=== PATIENT | female | born 1950 | race Caucasian/White ===

== ENCOUNTER 2020-06-06 14:03 | Inpatient (IN) ==
[2020-06-06] MEDS ORDERED: Ipratropium/Albuterol Neb 3 ML IH ONE (14:06)
[2020-06-06] MEDS ORDERED: methylPREDNISolone 125 MG/2 ML VIAL IVP ONE (14:06)
[2020-06-06] MEDS ORDERED: Azithromycin 500 MG in 0.9 % Sodium Chloride 250 ML IVPB ONE (14:06)
[2020-06-06] MEDS ORDERED: cefTRIAXone 2,000 MG in Water for inj. (sterile) 10 ML IVP ONE (14:06)
[2020-06-06 14:36] LABS: Basophils # 0.1 K/mcL (0.0-0.2); Basophils % 0.6 %; Eosinophils # 0.3 K/mcL (0.0-0.6); Eosinophils % 2.8 %; Hematocrit 42.5 % (35.3-44.9); Hemoglobin 14.2 g/dL (11.5-15.4); Immature Granulocytes % 0.2 % (0-4); Lymphocytes # 2.1 K/mcL (0.6-4.6); Lymphocytes % 22.1 %; Mean Corpuscular HGB Conc 33.4 g/dL (31.6-35.5); Mean Corpuscular Hemoglobin 31.4 pg (28.0-33.3); Mean Platelet Volume 9.4 fL (9.4-12.4); Monocytes # 0.6 K/mcL (0.0-1.3); Monocytes % 5.9 %; Neutrophils # 6.6 K/mcL (1.6-8.9); Platelet Count 300 K/mcL (140-400); Red Blood Count 4.52 M/mcL (3.82-4.97); Red Cell Distribution Width 13.8 % (11.5-14.5); Segmented Neutrophils % 68.4 %; White Blood Count 9.6 K/mcL (4.3-11.1)
[2020-06-06 14:53] LABS: Activated Partial Thrombo Time 32.9 Seconds (26.0-36.0); Prothrombin Time 11.8 Seconds (9.4-12.1)
[2020-06-06 14:54] LABS: BUN/Creatinine Ratio 14 (6-26); Blood Urea Nitrogen 12 mg/dL (8-23); Calcium 9.1 mg/dL (8.6-10.3); Carbon Dioxide 27 mEq/L (23-29); Chloride 97 mEq/L (98-107); Glucose 94 mg/dL (70-105); Osmolality,Calculated 278 (280-300); Potassium 4.2 mEq/L (3.5-5.1); Sodium 134 mEq/L (136-145); eGFR For African Americans > 60 (> 60); eGFR For Non-African Americans > 60 (> 60)
[2020-06-06 14:55] LABS: Troponin I < 0.03 ng/mL (< 0.04)
[2020-06-06 17:48] LABS: Adenovirus Not Detected (Not Detect); Bordetella Pertussis Not Detected (Not Detect); Chlamydophila pneumoniae Not Detected (Not Detect); Coronavirus 229E Not Detected (Not Detect); Coronavirus HKU1 Not Detected (Not Detect); Coronavirus NL63 Not Detected (Not Detect); Coronavirus OC43 Not Detected (Not Detect); Human Metapneumovirus Not Detected (Not Detect); Human Rhinovirus/Enterovirus Not Detected (Not Detect); Influenza A Subtype 2009 H1 Not Detected (Not Detect); Influenza B Not Detected (Not Detect); Mycoplasma pneumoniae Not Detected (Not Detect); Parainfluenza Virus 1 Not Detected (Not Detect); Parainfluenza Virus 2 Not Detected (Not Detect); Parainfluenza Virus 3 Not Detected (Not Detect); Parainfluenza Virus 4 Not Detected (Not Detect); Respiratory Syncytial Virus Not Detected (Not Detect)
[2020-06-06] MEDS ORDERED: Naloxone 0.4 MG/ML INJ IVP PRN (18:27)
[2020-06-06] MEDS ORDERED: Ondansetron 4 MG/2 ML VIAL IVP PRN (18:27)
[2020-06-06] MEDS ORDERED: MOM Conc 10 ML UD.LIQ PO PRN (18:27)
[2020-06-06] MEDS ORDERED: Mag Hydrox/Al Hydrox/Simeth 30 ML UDC PO PRN (18:27)
[2020-06-06] MEDS ORDERED: Acetaminophen 325 MG TABLET PO PRN (18:27)
[2020-06-06] MEDS: Mirtazapine 15 MG TABLET PO SCH (23:00)
[2020-06-06] MEDS: Melatonin 3 MG TABLET PO PRN (23:00)
[2020-06-07] MEDS: MethylPREDNISolone 40 MG/ML VIAL IVP SCH ×4 (00:29→23:10)
[2020-06-07 03:18] LABS: Basophils % 0.1 %; Hematocrit 43.4 % (35.3-44.9); Hemoglobin 14.1 g/dL (11.5-15.4); Immature Granulocytes % 0.4 % (0-4); Lymphocytes # 0.9 K/mcL (0.6-4.6); Lymphocytes % 12.6 %; Mean Corpuscular HGB Conc 32.5 g/dL (31.6-35.5); Mean Corpuscular Hemoglobin 31.4 pg (28.0-33.3); Mean Corpuscular Volume 96.7 fL (83.0-100.0); Mean Platelet Volume 9.7 fL (9.4-12.4); Monocytes # 0.1 K/mcL (0.0-1.3); Monocytes % 1.6 %; Neutrophils # 5.9 K/mcL (1.6-8.9); Platelet Count 295 K/mcL (140-400); Red Blood Count 4.49 M/mcL (3.82-4.97); Red Cell Distribution Width 13.9 % (11.5-14.5); Segmented Neutrophils % 85.3 %; White Blood Count 6.9 K/mcL (4.3-11.1)
[2020-06-07 05:00] LABS: BUN/Creatinine Ratio 20 (6-26); Blood Urea Nitrogen 18 mg/dL (8-23); Calcium 9.6 mg/dL (8.6-10.3); Carbon Dioxide 29 mEq/L (23-29); Chloride 99 mEq/L (98-107); Glucose 111 mg/dL (70-105); Osmolality,Calculated 285 (280-300); Potassium 4.9 mEq/L (3.5-5.1); Sodium 136 mEq/L (136-145); eGFR For African Americans > 60 (> 60); eGFR For Non-African Americans > 60 (> 60)
[2020-06-07] MEDS: Nicotine 14 MG PATCH.TD24 TD SCH (08:30)
[2020-06-07] MEDS: Ipratropium/Albuterol Neb 3 ML IH PRN ×2 (09:13→20:56)
[2020-06-07] MEDS: Budesonide/Formoterol 160/4.5 1 PUFF INH IH SCH ×2 (15:39→20:54)
[2020-06-07] MEDS: Mirtazapine 15 MG TABLET PO SCH (20:42)
[2020-06-07] MEDS: Melatonin 3 MG TABLET PO PRN (23:10)
[2020-06-08] MEDS: Nicotine 14 MG PATCH.TD24 TD SCH (08:05)
[2020-06-08] MEDS: MethylPREDNISolone 40 MG/ML VIAL IVP SCH (08:05)
[2020-06-08] MEDS: Budesonide/Formoterol 160/4.5 1 PUFF INH IH SCH (09:56)
[2020-06-08 10:03] VITALS: BP 135/92
== END 2020-06-08 13:35 | disposition home or self-care (01) | DRG 192 ==
LOC: INPPIK 14:03 → EMEROOPIK 14:03 → INPPIK 18:01 → MERGE 06-07 09:09
PROVIDERS: ADMIT Family Medicine; ATTEND Family Medicine

== ENCOUNTER 2020-10-04 13:02 | Inpatient (IN) ==
[2020-10-04] MEDS ORDERED: cefTRIAXone 2,000 MG in Water for inj. (sterile) 10 ML IVP ONE (13:11)
[2020-10-04] MEDS ORDERED: methylPREDNISolone 125 MG/2 ML VIAL IVP ONE (13:11)
[2020-10-04] MEDS ORDERED: Azithromycin 500 MG in 0.9 % Sodium Chloride 250 ML IVPB ONE (13:11)
[2020-10-04] MEDS ORDERED: Ipratropium/Albuterol Neb 3 ML IH ONE (13:11)
[2020-10-04] MEDS ORDERED: cefTRIAXone 2,000 MG in Water for inj. (sterile) 20 ML IVP ONE (13:20)
[2020-10-04] MEDS ORDERED: CefTRIAXone 2,000 MG VIAL ONE (13:20)
[2020-10-04 13:43] LABS: Basophils # 0.1 K/mcL (0.0-0.2); Basophils % 0.6 %; Eosinophils # 0.5 K/mcL (0.0-0.6); Eosinophils % 5.5 %; Hemoglobin 13.4 g/dL (11.5-15.4); Immature Granulocytes % 0.2 % (0-4); Lymphocytes # 1.2 K/mcL (0.6-4.6); Lymphocytes % 13.6 %; Mean Corpuscular HGB Conc 32.7 g/dL (31.6-35.5); Mean Corpuscular Volume 94.9 fL (83.0-100.0); Mean Platelet Volume 9.5 fL (9.4-12.4); Monocytes # 0.6 K/mcL (0.0-1.3); Monocytes % 6.1 %; Neutrophils # 6.7 K/mcL (1.6-8.9); Platelet Count 363 K/mcL (140-400); Red Blood Count 4.32 M/mcL (3.82-4.97); Red Cell Distribution Width 14.9 % (11.5-14.5); White Blood Count 9.1 K/mcL (4.3-11.1)
[2020-10-04 13:49] LABS: Prothrombin Time 12.1 Seconds (9.4-12.1)
[2020-10-04 13:51] LABS: Activated Partial Thrombo Time 32.9 Seconds (26.0-36.0)
[2020-10-04 13:59] LABS: BUN/Creatinine Ratio 20 (6-26); Blood Urea Nitrogen 16 mg/dL (8-23); Calcium 9.1 mg/dL (8.6-10.3); Carbon Dioxide 28 mEq/L (23-29); Chloride 101 mEq/L (98-107); Glucose 98 mg/dL (70-105); Osmolality,Calculated 287 (280-300); Potassium 4.3 mEq/L (3.5-5.1); Sodium 138 mEq/L (136-145); eGFR For African Americans > 60 (> 60); eGFR For Non-African Americans > 60 (> 60)
[2020-10-04 14:00] LABS: Troponin I < 0.03 ng/mL (< 0.04)
[2020-10-04 14:23] LABS: Bilirubin,Urine Negative (Negative); Blood,Urine Small (Negative); Clarity,Urine Clear (Clear); Color,Urine Yellow (Yellow); Glucose,Urine (UA) Normal (Normal); Ketones,Urine Negative (Negative); Leukocyte Esterase,Urine Negative (Negative); Nitrite,Urine Negative (Negative); Protein,Urine Negative (Neg-Trace); Urobilinogen,Urine Normal (Normal)
[2020-10-04 14:30] LABS: RBC,Urine 0-3 per hpf (0-3); Squamous Epithelial Cell,Urine Few per hpf (None-Few); WBC,Urine 0-3 per hpf (0-3)
[2020-10-04] MEDS ORDERED: *HR* LORazepam 0.5 MG TABLET PO ONE (14:31)
[2020-10-04] MEDS ORDERED: MOM Conc 10 ML UD.LIQ PO PRN (14:59)
[2020-10-04] MEDS ORDERED: Mag Hydrox/Al Hydrox/Simeth 30 ML UDC PO PRN (14:59)
[2020-10-04] MEDS ORDERED: Naloxone 0.4 MG/ML INJ IVP PRN (14:59)
[2020-10-04] MEDS ORDERED: Ondansetron 4 MG/2 ML VIAL IVP PRN (14:59)
[2020-10-04] MEDS ORDERED: *HR* LORazepam 0.5 MG TABLET PO PRN (15:04)
[2020-10-04] MEDS ORDERED: Ipratropium/Albuterol Neb 3 ML IH PRN ×2 (15:07→15:16)
[2020-10-04] MEDS ORDERED: Nicotine 7 MG PATCH.TD24 TD SCH (15:57)
[2020-10-04] MEDS ORDERED: *HR* Metoprolol 5 MG/5 ML VIAL IVP PRN (20:14)
[2020-10-04 21:47] LABS: Adenovirus Not Detected (Not Detect); Bordetella Pertussis Not Detected (Not Detect); Chlamydophila pneumoniae Not Detected (Not Detect); Coronavirus 229E Not Detected (Not Detect); Coronavirus HKU1 Not Detected (Not Detect); Coronavirus NL63 Not Detected (Not Detect); Coronavirus OC43 Not Detected (Not Detect); Human Metapneumovirus Not Detected (Not Detect); Human Rhinovirus/Enterovirus Not Detected (Not Detect); Influenza A Subtype 2009 H1 Not Detected (Not Detect); Influenza B Not Detected (Not Detect); Mycoplasma pneumoniae Not Detected (Not Detect); Parainfluenza Virus 1 Not Detected (Not Detect); Parainfluenza Virus 2 Not Detected (Not Detect); Parainfluenza Virus 3 Not Detected (Not Detect); Parainfluenza Virus 4 Not Detected (Not Detect); Respiratory Syncytial Virus Not Detected (Not Detect)
[2020-10-04] MEDS: Budesonide/Formoterol 160/4.5 1 PUFF INH IH SCH (21:50)
[2020-10-04] MEDS: Melatonin 3 MG TABLET PO SCH (22:46)
[2020-10-05] MEDS: MethylPREDNISolone 40 MG/ML VIAL IVP SCH ×3 (00:40→16:31)
[2020-10-05 01:54] LABS: Basophils % 0.2 %; Hematocrit 38.8 % (35.3-44.9); Hemoglobin 12.4 g/dL (11.5-15.4); Immature Granulocytes % 0.4 % (0-4); Mean Corpuscular Hemoglobin 30.7 pg (28.0-33.3); Mean Platelet Volume 9.5 fL (9.4-12.4); Monocytes # 0.2 K/mcL (0.0-1.3); Monocytes % 4.4 %; Neutrophils # 4.1 K/mcL (1.6-8.9); Platelet Count 350 K/mcL (140-400); Red Blood Count 4.04 M/mcL (3.82-4.97); Red Cell Distribution Width 14.8 % (11.5-14.5); White Blood Count 5.3 K/mcL (4.3-11.1)
[2020-10-05 02:18] LABS: BUN/Creatinine Ratio 29 (6-26); Blood Urea Nitrogen 23 mg/dL (8-23); Calcium 9.3 mg/dL (8.6-10.3); Carbon Dioxide 30 mEq/L (23-29); Chloride 101 mEq/L (98-107); Glucose 117 mg/dL (70-105); Osmolality,Calculated 291 (280-300); Potassium 4.7 mEq/L (3.5-5.1); Sodium 138 mEq/L (136-145); eGFR For African Americans > 60 (> 60); eGFR For Non-African Americans > 60 (> 60)
[2020-10-05] MEDS: Budesonide/Formoterol 160/4.5 1 PUFF INH IH SCH ×2 (08:43→21:04)
[2020-10-05] MEDS: Acetaminophen 325 MG TABLET PO PRN ×2 (09:58→21:19)
[2020-10-05] MEDS ORDERED: Azithromycin 500 MG in 0.9 % Sodium Chloride 250 ML IVPB SCH (13:00)
[2020-10-05] MEDS: cefTRIAXone 2,000 MG in 0.9 % Sodium Chloride Mini Bag 100 ML IVPB SCH (13:32)
[2020-10-05] MEDS: Melatonin 3 MG TABLET PO SCH (21:19)
[2020-10-05] MEDS: Mirtazapine 15 MG TABLET PO SCH (21:19)
[2020-10-06] MEDS: MethylPREDNISolone 40 MG/ML VIAL IVP SCH ×2 (03:00→17:59)
[2020-10-06] MEDS ORDERED: MethylPREDNISolone 40 MG/ML VIAL IVP SCH (03:00)
[2020-10-06 08:27] LABS: Hematocrit 41.3 % (35.3-44.9); Hemoglobin 13.3 g/dL (11.5-15.4); Immature Granulocytes % 0.5 % (0-4); Lymphocytes # 0.8 K/mcL (0.6-4.6); Lymphocytes % 10.2 %; Mean Corpuscular HGB Conc 32.2 g/dL (31.6-35.5); Mean Corpuscular Hemoglobin 30.9 pg (28.0-33.3); Mean Corpuscular Volume 95.8 fL (83.0-100.0); Mean Platelet Volume 9.5 fL (9.4-12.4); Monocytes # 0.2 K/mcL (0.0-1.3); Monocytes % 2.2 %; Neutrophils # 7.1 K/mcL (1.6-8.9); Platelet Count 432 K/mcL (140-400); Red Blood Count 4.31 M/mcL (3.82-4.97); Red Cell Distribution Width 14.5 % (11.5-14.5); Segmented Neutrophils % 87.1 %; White Blood Count 8.1 K/mcL (4.3-11.1)
[2020-10-06 08:40] LABS: BUN/Creatinine Ratio 32 (6-26); Blood Urea Nitrogen 24 mg/dL (8-23); Calcium 9.5 mg/dL (8.6-10.3); Carbon Dioxide 32 mEq/L (23-29); Chloride 98 mEq/L (98-107); Glucose 120 mg/dL (70-105); Osmolality,Calculated 289 (280-300); Potassium 4.5 mEq/L (3.5-5.1); Sodium 137 mEq/L (136-145); eGFR For African Americans > 60 (> 60); eGFR For Non-African Americans > 60 (> 60)
[2020-10-06] MEDS: *HR* Enoxaparin 40 MG/0.4 ML SYRINGE SQ SCH (09:06)
[2020-10-06] MEDS: Budesonide/Formoterol 160/4.5 1 PUFF INH IH SCH ×2 (09:58→21:59)
[2020-10-06] MEDS: cefTRIAXone 2,000 MG in 0.9 % Sodium Chloride Mini Bag 100 ML IVPB SCH (13:26)
[2020-10-06] MEDS: Azithromycin 500 MG in 0.9 % Sodium Chloride 250 ML IVPB SCH (14:24)
[2020-10-06 14:38] LABS: Bilirubin,Urine Negative (Negative); Blood,Urine Trace-lysed (Negative); Clarity,Urine Clear (Clear); Color,Urine Yellow (Yellow); Glucose,Urine (UA) Normal (Normal); Ketones,Urine Trace mg/dL (Negative); Leukocyte Esterase,Urine Negative (Negative); Nitrite,Urine Negative (Negative); Protein,Urine Negative (Neg-Trace); Specific Gravity,Urine 1.025 (1.010-1.025); Urobilinogen,Urine Normal (Normal)
[2020-10-06 14:49] LABS: RBC,Urine 0-3 per hpf (0-3); Squamous Epithelial Cell,Urine Few per hpf (None-Few); WBC,Urine 0-3 per hpf (0-3)
[2020-10-06] MEDS: Melatonin 3 MG TABLET PO SCH (21:10)
[2020-10-06] MEDS: Mirtazapine 15 MG TABLET PO SCH (21:10)
[2020-10-07] MEDS: *HR* Enoxaparin 40 MG/0.4 ML SYRINGE SQ SCH (05:04)
[2020-10-07] MEDS: MethylPREDNISolone 40 MG/ML VIAL IVP SCH (05:06)
[2020-10-07 08:54] LABS: Basophils % 0.1 %; Hematocrit 41.7 % (35.3-44.9); Hemoglobin 13.3 g/dL (11.5-15.4); Immature Granulocytes % 0.4 % (0-4); Lymphocytes # 0.9 K/mcL (0.6-4.6); Lymphocytes % 11.5 %; Mean Corpuscular HGB Conc 31.9 g/dL (31.6-35.5); Mean Corpuscular Hemoglobin 30.6 pg (28.0-33.3); Mean Corpuscular Volume 96.1 fL (83.0-100.0); Mean Platelet Volume 9.7 fL (9.4-12.4); Monocytes # 0.2 K/mcL (0.0-1.3); Monocytes % 2.3 %; Neutrophils # 6.7 K/mcL (1.6-8.9); Platelet Count 459 K/mcL (140-400); Red Blood Count 4.34 M/mcL (3.82-4.97); Red Cell Distribution Width 14.6 % (11.5-14.5); Segmented Neutrophils % 85.7 %; White Blood Count 7.8 K/mcL (4.3-11.1)
[2020-10-07 09:29] LABS: BUN/Creatinine Ratio 34 (6-26); Blood Urea Nitrogen 25 mg/dL (8-23); Calcium 9.3 mg/dL (8.6-10.3); Carbon Dioxide 34 mEq/L (23-29); Chloride 98 mEq/L (98-107); Glucose 102 mg/dL (70-105); Osmolality,Calculated 293 (280-300); Potassium 4.1 mEq/L (3.5-5.1); Sodium 139 mEq/L (136-145); eGFR For African Americans > 60 (> 60); eGFR For Non-African Americans > 60 (> 60)
[2020-10-07] MEDS: Budesonide/Formoterol 160/4.5 1 PUFF INH IH SCH (10:29)
[2020-10-07] MEDS: Acetaminophen 325 MG TABLET PO PRN (11:59)
[2020-10-07] MEDS: cefTRIAXone 2,000 MG in 0.9 % Sodium Chloride Mini Bag 100 ML IVPB SCH (12:47)
[2020-10-07] MEDS: Azithromycin 500 MG in 0.9 % Sodium Chloride 250 ML IVPB SCH (13:51)
[2020-10-07 15:48] VITALS: BP 139/85
== END 2020-10-07 16:27 | disposition other institution (70) | DRG 190 ==
LOC: EMEROOPIK 13:02 → INPPIK 13:02
PROVIDERS: ADMIT Family Medicine; ATTEND Family Medicine

== ENCOUNTER 2020-10-07 11:37 | Inpatient (IN) ==
[2020-10-07] MEDS ORDERED: Ipratropium/Albuterol Neb 3 ML IH PRN (21:15)
[2020-10-07] MEDS: Cefdinir 300 MG CAPSULE PO SCH (22:08)
[2020-10-07] MEDS: Melatonin 3 MG TABLET PO SCH (22:08)
[2020-10-08 07:44] LABS: Basophils % 0.3 %; Eosinophils # 0.1 K/mcL (0.0-0.6); Eosinophils % 0.9 %; Hematocrit 38.8 % (35.3-44.9); Hemoglobin 12.5 g/dL (11.5-15.4); Immature Granulocytes % 0.4 % (0-4); Lymphocytes % 27.3 %; Mean Corpuscular HGB Conc 32.2 g/dL (31.6-35.5); Mean Corpuscular Hemoglobin 30.6 pg (28.0-33.3); Mean Corpuscular Volume 95.1 fL (83.0-100.0); Mean Platelet Volume 9.7 fL (9.4-12.4); Monocytes # 0.9 K/mcL (0.0-1.3); Monocytes % 7.9 %; Neutrophils # 6.9 K/mcL (1.6-8.9); Platelet Count 425 K/mcL (140-400); Red Blood Count 4.08 M/mcL (3.82-4.97); Red Cell Distribution Width 14.5 % (11.5-14.5); Segmented Neutrophils % 63.2 %; White Blood Count 10.9 K/mcL (4.3-11.1)
[2020-10-08 08:05] LABS: BUN/Creatinine Ratio 35 (6-26); Blood Urea Nitrogen 26 mg/dL (8-23); Calcium 8.9 mg/dL (8.6-10.3); Carbon Dioxide 34 mEq/L (23-29); Chloride 100 mEq/L (98-107); Glucose 87 mg/dL (70-105); Osmolality,Calculated 290 (280-300); Potassium 3.7 mEq/L (3.5-5.1); Sodium 138 mEq/L (136-145); eGFR For African Americans > 60 (> 60); eGFR For Non-African Americans > 60 (> 60)
[2020-10-08] MEDS: Budesonide/Formoterol 80/4.5 1 PUFF INH IH SCH ×2 (08:09→21:28)
[2020-10-08] MEDS: Mirtazapine 15 MG TABLET PO SCH (08:14)
[2020-10-08] MEDS: predniSONE 20 MG TABLET PO SCH (08:14)
[2020-10-08] MEDS: Azithromycin 250 MG TABLET PO SCH (08:15)
[2020-10-08] MEDS: Cefdinir 300 MG CAPSULE PO SCH ×2 (08:15→21:04)
[2020-10-08] MEDS: Melatonin 3 MG TABLET PO SCH (21:05)
[2020-10-09 01:31] LABS: Bilirubin,Urine Negative (Negative); Blood,Urine Trace-intact (Negative); Clarity,Urine Slightly Cloudy (Clear); Glucose,Urine (UA) Normal (Normal); Ketones,Urine Trace mg/dL (Negative); Leukocyte Esterase,Urine Negative (Negative); Nitrite,Urine Negative (Negative); Protein,Urine Negative (Neg-Trace); Specific Gravity,Urine 1.025 (1.010-1.025); Urobilinogen,Urine Normal (Normal)
[2020-10-09 01:33] LABS: Color,Urine Light Yellow (Yellow)
[2020-10-09 02:10] LABS: Hyaline Casts,Urine Few per lpf (None Seen); Squamous Epithelial Cell,Urine Few per hpf (None-Few)
[2020-10-09 02:11] LABS: Amorphous Sediment,Urine Few per hpf (None-Few); Bacteria,Urine Moderate per hpf (None-Few); Mucus,Urine Few per lpf (None-Few); RBC,Urine 0-3 per hpf (0-3); WBC,Urine 0-3 per hpf (0-3)
[2020-10-09] MEDS: predniSONE 20 MG TABLET PO SCH (08:51)
[2020-10-09] MEDS: Azithromycin 250 MG TABLET PO SCH (08:51)
[2020-10-09] MEDS: Cefdinir 300 MG CAPSULE PO SCH ×2 (08:51→19:28)
[2020-10-09] MEDS: Mirtazapine 15 MG TABLET PO SCH (08:51)
[2020-10-09] MEDS: Budesonide/Formoterol 80/4.5 1 PUFF INH IH SCH ×2 (11:09→22:24)
[2020-10-09 12:14] LABS: Bilirubin,Urine Negative (Negative); Blood,Urine Negative (Negative); Clarity,Urine Clear (Clear); Color,Urine Yellow (Yellow); Glucose,Urine (UA) Normal (Normal); Ketones,Urine Negative (Negative); Leukocyte Esterase,Urine Negative (Negative); Nitrite,Urine Negative (Negative); PH,Urine 7.5 pH Units (5.0-8.0); Protein,Urine Negative (Neg-Trace); Urobilinogen,Urine Normal (Normal)
[2020-10-09] MEDS: Melatonin 3 MG TABLET PO SCH (19:28)
[2020-10-09] MEDS: Acetaminophen 325 MG TABLET PO PRN (19:29)
[2020-10-10] MEDS ORDERED: Ondansetron 4 MG/2 ML VIAL IVP ONE (04:01)
[2020-10-10] MEDS: Acetaminophen 325 MG TABLET PO PRN (05:31)
[2020-10-10] MEDS: Azithromycin 250 MG TABLET PO SCH (08:38)
[2020-10-10] MEDS: predniSONE 20 MG TABLET PO SCH (08:38)
[2020-10-10] MEDS: Mirtazapine 15 MG TABLET PO SCH (08:38)
[2020-10-10] MEDS: Cefdinir 300 MG CAPSULE PO SCH ×2 (08:38→19:44)
[2020-10-10] MEDS: Budesonide/Formoterol 80/4.5 1 PUFF INH IH SCH ×2 (10:04→21:01)
[2020-10-10] MEDS: Melatonin 3 MG TABLET PO SCH (19:43)
[2020-10-10] MEDS: Sennosides 8.6 MG TABLET PO SCH (21:31)
[2020-10-11] MEDS: Azithromycin 250 MG TABLET PO SCH (08:20)
[2020-10-11] MEDS: predniSONE 20 MG TABLET PO SCH (08:20)
[2020-10-11] MEDS: Sennosides 8.6 MG TABLET PO SCH (08:20)
[2020-10-11] MEDS: *HR* LORazepam 0.5 MG TABLET PO PRN ×2 (08:20→20:33)
[2020-10-11] MEDS: Mirtazapine 15 MG TABLET PO SCH (08:20)
[2020-10-11] MEDS: Cefdinir 300 MG CAPSULE PO SCH ×2 (08:21→20:33)
[2020-10-11] MEDS ORDERED: Lactulose Oral Soln 20 GM/30 ML UDC PO ONE ×2 (10:19→16:13)
[2020-10-11] MEDS: Budesonide/Formoterol 80/4.5 1 PUFF INH IH SCH ×2 (10:59→22:43)
[2020-10-11] MEDS: Melatonin 3 MG TABLET PO SCH (20:33)
[2020-10-12 06:55] VITALS: BP 130/76
[2020-10-12] MEDS: Azithromycin 250 MG TABLET PO SCH (09:59)
[2020-10-12] MEDS: Cefdinir 300 MG CAPSULE PO SCH (10:00)
[2020-10-12] MEDS: predniSONE 20 MG TABLET PO SCH (10:00)
[2020-10-12] MEDS: Sennosides 8.6 MG TABLET PO SCH (10:00)
[2020-10-12] MEDS: *HR* LORazepam 0.5 MG TABLET PO PRN (10:06)
[2020-10-12] MEDS: Budesonide/Formoterol 80/4.5 1 PUFF INH IH SCH (10:36)
[2020-10-12] MEDS ORDERED: Mirtazapine 15 MG TABLET PO SCH (21:00)
== END 2020-10-12 14:25 | disposition home or self-care (01) | DRG 190 ==
LOC: INPPIK 16:29
PROVIDERS: ADMIT Family Medicine; ATTEND Family Medicine